=== PATIENT | female | born 1960 | race Caucasian/White ===

== ENCOUNTER 2020-03-08 20:58 | Inpatient (IN) ==
[2020-03-08 21:25] LABS: Basophils # 0.1 K/mcL (0.0-0.2); Basophils % 0.9 %; Eosinophils # 0.2 K/mcL (0.0-0.6); Eosinophils % 3.7 %; Hematocrit 44.2 % (35.3-44.9); Hemoglobin 14.4 g/dL (11.5-15.4); Immature Granulocytes % 0.2 % (0-4); Lymphocytes # 1.9 K/mcL (0.6-4.6); Lymphocytes % 34.2 %; Mean Corpuscular HGB Conc 32.6 g/dL (31.6-35.5); Mean Corpuscular Hemoglobin 28.5 pg (28.0-33.3); Mean Corpuscular Volume 87.5 fL (83.0-100.0); Mean Platelet Volume 8.6 fL (9.4-12.4); Monocytes # 0.4 K/mcL (0.0-1.3); Monocytes % 7.8 %; Platelet Count 261 K/mcL (140-400); Red Blood Count 5.05 M/mcL (3.82-4.97); Red Cell Distribution Width 12.6 % (11.5-14.5); Segmented Neutrophils % 53.2 %; White Blood Count 5.7 K/mcL (4.3-11.1)
[2020-03-08 21:45] LABS: Acetaminophen < 10 mcg/mL (10-20); BUN/Creatinine Ratio 22 (6-26); Blood Urea Nitrogen 15 mg/dL (6-20); Calcium 9.5 mg/dL (8.6-10.3); Carbon Dioxide 26 mEq/L (23-29); Chloride 108 mEq/L (98-107); Ethanol < 10 mg/dL (Less than 10); Glucose 92 mg/dL (70-105); Osmolality,Calculated 290 (280-300); Salicylate < 2.5 mg/dL (15.0-30.0); Sodium 140 mEq/L (136-145); eGFR For African Americans > 60 (> 60); eGFR For Non-African Americans > 60 (> 60)
[2020-03-08 22:26] LABS: Bilirubin,Urine Negative (Negative); Blood,Urine Negative (Negative); Clarity,Urine Clear (Clear); Color,Urine Yellow (Yellow); Glucose,Urine (UA) Normal (Normal); Ketones,Urine Trace mg/dL (Negative); Leukocyte Esterase,Urine Small (Negative); Nitrite,Urine Negative (Negative); PH,Urine 6.5 pH Units (5.0-8.0); Protein,Urine Negative (Neg-Trace); Specific Gravity,Urine 1.018 (1.010-1.025); Urobilinogen,Urine Normal (Normal)
[2020-03-08 22:29] LABS: Bacteria,Urine Few per hpf (None-Few); Hyaline Casts,Urine None Seen per lpf (None-Few); RBC,Urine 0-3 per hpf (0-3); Squamous Epithelial Cell,Urine Many per lpf (None-Few)
[2020-03-08 23:06] LABS: Amphetamine Screen,Urine Negative ng/mL (Cutoff=1000); Barbiturate Screen,Urine Negative ng/mL (Cutoff=200); Benzodiazepines Screen,Urine Negative ng/mL (Cutoff=200); Cannabinoid Screen,Urine Positive ng/mL (Cutoff = 50); Cocaine Screen,Urine Negative ng/mL (Cutoff= 300); Opiate Screen,Urine Negative ng/mL (Cutoff=300); Phencyclidine Screen,Urine Negative ng/mL (Cutoff=25)
[2020-03-09] MEDS ORDERED: *HR* LORazepam 1 MG TABLET PO PRN (01:02)
[2020-03-09] MEDS ORDERED: MOM Conc 10 ML UD.LIQ PO PRN (01:02)
[2020-03-09] MEDS ORDERED: Mag Hydrox/Al Hydrox/Simeth 30 ML UDC PO PRN (01:02)
[2020-03-09] MEDS ORDERED: haloperidoL 5 MG TABLET PO PRN (01:02)
[2020-03-09] MEDS ORDERED: Haloperidol Lactate 5 MG/ML VIAL IM PRN (01:02)
[2020-03-09] MEDS ORDERED: hydrOXYzine pamoate 25 MG CAPSULE PO PRN (01:02)
[2020-03-09] MEDS ORDERED: *HR* LORazepam 2 MG/ML VIAL IM PRN (01:02)
[2020-03-09] MEDS ORDERED: QUEtiapine Fumarate 25 MG TABLET PO PRN (01:02)
[2020-03-09] MEDS: Acetaminophen 325 MG TABLET PO PRN ×2 (01:58→15:38)
[2020-03-09] MEDS: BuPROPion XL (24 HR) 150 MG TABLET PO SCH (11:10)
[2020-03-09] MEDS: traZODone 50 MG TABLET PO PRN (21:48)
[2020-03-10] MEDS: Acetaminophen 325 MG TABLET PO PRN ×2 (07:35→20:42)
[2020-03-10] MEDS: BuPROPion XL (24 HR) 150 MG TABLET PO SCH (08:31)
[2020-03-10] MEDS: traZODone 50 MG TABLET PO PRN (20:43)
[2020-03-11] MEDS: BuPROPion XL (24 HR) 150 MG TABLET PO SCH (08:55)
[2020-03-11 09:26] VITALS: BP 115/78
[2020-03-11] MEDS: Acetaminophen 325 MG TABLET PO PRN (11:28)
== END 2020-03-11 12:00 | disposition home or self-care (01) | DRG 885 ==
LOC: EMEROOARM 20:58 → 1ANU 03-09 00:55
PROVIDERS: ADMIT Psychiatry & Neurology Psychiatry; ATTEND Psychiatry & Neurology Psychiatry